=== PATIENT | male | born 1950 | race Caucasian/White ===

== ENCOUNTER 2018-11-05 14:35 | Day surgery (SDC) | payer OTHER ==
[~2018-11-05] VITALS: Ht 182.9 cm; Wt 106.6 kg
[~2018-11-05 14:35] MED LIST: AMOX500 PO; ASPI81EC PO; BP MED; CHOLESTEROL MED; CODGUAEL PO; HYDACE5 PO; Hydrochlorothia25 MG PO; IBUP800 PO; LOSA50 PO; LOSHYD100 PO; METF500 PO; METF500C PO; OMEP10ER; OMEP20ER PO; Prozac20 MG PO; RXHYDACE PO; SIMV10 PO; VITAMIN D3 PO
[2018-11-05] MEDS ORDERED: SERT100 PO (15:04)
--- NOTE | 2018-11-05 16:22 | NUR ---
BROUGHT INOT SDS FROM ER FOR SCOPE ADMISSION TO UNIT STARTED VS WITH ELEVATED BP [facility] IV [facility] USED FOR PROCEDURE [facility]
--- NOTE | 2018-11-05 16:32 | NUR ---
11/05/18 1632 Finn Aragon Bite Block PlacedPatient to ENDO 1History, Chart, Medications and Allergies reviewed before start of procedure.MONITOR INTACT WITH CONTINUOUS PULSE OXIMETRY AND INTERMITTENT BP.O2 VIA N/C INTACT THROUGHOUT SEDATION/PROCEDURE.See Anesthesia record
--- NOTE | 2018-11-05 17:49 | NUR ---
DISCHARGED FROM [facility] AT THIS TIME 1745 ESCORTED OUT IN WHEELCHAIR. SENT WITH KDISCHARGE INSTRUCITONS INCLUDING STAYING ON LIQUID DIET FOR 24 HOURS.
== END 2018-11-05 17:45 | disposition home or self-care (01) ==
LOC: ER 14:35 → ORSCMMR 16:45
PROVIDERS: Internal Medicine Gastroenterology
PROC: 0DC58ZZ Extirpation of Matter from Esophagus, Via Natural or Artificial Opening Endoscopic (ICD-10-PCS; principal; 2018-11-05 16:00)
PROC: 0D758ZZ Dilation of Esophagus, Via Natural or Artificial Opening Endoscopic (ICD-10-PCS; principal; 2018-11-05 16:00)
DX: T18.128A Food in esophagus causing other injury, initial encounter (principal); K22.2 Esophageal obstruction; I10 Essential (primary) hypertension; J44.9 Chronic obstructive pulmonary disease, unspecified; E11.9 Type 2 diabetes mellitus without complications; G47.33 Obstructive sleep apnea (adult) (pediatric); Z79.899 Other long term (current) drug therapy
CPT/HCPCS: 82947; 99285; J2250; J7120

== ENCOUNTER 2021-05-05 15:42 | Emergency (ER) | payer OTHER ==
[~2021-05-05] VITALS: Ht 182.9 cm; Wt 106.6 kg
[~2021-05-05 15:42] MED LIST changes: +SERT100 PO
== END 2021-05-05 18:11 | disposition home or self-care (01) ==
LOC: ER 15:42
DX: T18.128A Food in esophagus causing other injury, initial encounter (principal); J44.9 Chronic obstructive pulmonary disease, unspecified; I10 Essential (primary) hypertension; E11.9 Type 2 diabetes mellitus without complications; E78.5 Hyperlipidemia, unspecified; Z79.84 Long term (current) use of oral hypoglycemic drugs; Z79.899 Other long term (current) drug therapy
CPT/HCPCS: 96374; 96375; 99283-25; A9270; J1610; J2060

== ENCOUNTER 2021-05-31 21:08 | Emergency (ER) | payer OTHER ==
[~2021-05-31] VITALS: Ht 182.9 cm; Wt 106.6 kg
== END 2021-06-01 00:15 | disposition home or self-care (01) ==
LOC: ER 21:08
DX: T18.128A Food in esophagus causing other injury, initial encounter (principal); I10 Essential (primary) hypertension; J44.9 Chronic obstructive pulmonary disease, unspecified; E11.9 Type 2 diabetes mellitus without complications; Z79.84 Long term (current) use of oral hypoglycemic drugs; Z79.899 Other long term (current) drug therapy
CPT/HCPCS: 99283

== ENCOUNTER 2022-03-31 11:42 | Emergency (ER) | payer OTHER ==
[~2022-03-31] VITALS: Ht 182.9 cm; Wt 108.9 kg
[2022-03-31 12:30] LABS: BASOPHILS ABSOLUTE AUTO 0.02 K/mm3 (0.00-0.23); BASOPHILS PERCENT AUTO 0 % (0-2); EOSINOPHILS PERCENT AUTO 0 % (0-6); Hematocrit 46.7 % (37.0-53.0); Hemoglobin 15.2 g/dL (13.5-17.5); IMMATURE GRAN ABSOLUTE AUTO 0.02 K/mm3 (0.00-0.10); IMMATURE GRAN PERCENT AUTO 0 % (0-1); LYMPHOCYTES ABSOLUTE AUTO 0.89 K/mm3 (0.84-5.20); LYMPHOCYTES PERCENT AUTO 15 % (21-46); MONOCYTES ABSOLUTE AUTO 0.53 K/mm3 (0.16-1.47); MONOCYTES PERCENT AUTO 9 % (4-13); Mean Corpuscular HGB Conc 32.5 g/dL (31.5-36.5); Mean Corpuscular Volume 95 fL (80-100); Mean Platelet Volume 11.5 fL (9.1-12.4); NEUTROPHILS ABSOLUTE AUTO 4.48 K/mm3 (1.96-9.15); NEUTROPHILS PERCENT AUTO 76 % (41-73); Platelet Count 132 K/mm3 (150-400); RDW Coefficient Variation 13.4 % (11.7-14.2); RDW Standard Deviation 47.8 fL (35.1-46.3); Red Blood Cell Count 4.91 M/mm3 (4.30-5.90); White Blood Cell Count 5.94 K/mm3 (4.00-11.30)
[2022-03-31 12:51] LABS: Albumin, Blood 3.5 g/dL (3.4-5.0); Bilirubin, Total 0.4 mg/dL (0.1-1.0); Bun/Creatinine Ratio 21.1 (12.0-20.0); Calcium, Blood 8.8 mg/dL (8.5-10.1); Creatinine, Blood 0.71 mg/dL (0.60-1.20); Globulin, Blood 3.6 g/dL (2.2-4.0); Potassium, Blood 3.9 mmol/L (3.5-5.5); Total Protein, Blood 7.1 g/dL (6.4-8.2)
[2022-03-31 13:06] LABS: Influenza A, PCR NEGATIVE (NEGATIVE); Influenza B, PCR NEGATIVE (NEGATIVE); Resp Syncytial Virus, PCR NEGATIVE (NEGATIVE)
[2022-03-31 13:14] LABS: SARS-Cov-2 (COVID-19) PCR, MMC POSITIVE (NEGATIVE)
== END 2022-03-31 16:49 | disposition home or self-care (01) ==
LOC: ER 11:42
PROVIDERS: Physician Assistant
DX: U07.1 COVID-19 (principal); R07.9 Chest pain, unspecified; J44.9 Chronic obstructive pulmonary disease, unspecified; E11.9 Type 2 diabetes mellitus without complications; E78.5 Hyperlipidemia, unspecified; I10 Essential (primary) hypertension; Z79.84 Long term (current) use of oral hypoglycemic drugs; Z79.899 Other long term (current) drug therapy
CPT/HCPCS: 0241U; 36415; 71045; 80053; 83690; 84484; 85025; 93005; 93010; J2405; J7030